=== PATIENT | female | born 1990 | race Caucasian/White ===

== ENCOUNTER 2020-09-19 20:51 | Emergency (ER) | payer SELFPAY ==
[2020-09-19 20:54] VITALS: BP 139/68; PULSE 100; RESP 18; O2SAT 97; BMI 39.1
--- NOTE | 2020-09-19 22:15 | ED.DENTAL ---
HPI - Dental/Oral General Chief complaint: Dental/Oral Stated complaint: facial bump Time Seen by Provider: 09/19/20 22:15 Source: patient Mode of arrival: ambulatory Limitations: no limitations History of Present Illness HPI Narrative: patient with history of caries teeth broke her right upper premolar 2 days ago woke up next day with increased swelling and pain Complaint: tooth pain Teeth map: 1. tender broken right upper premolar with gum swelling Related Data Previous Rx's Medication Instructions Recorded amoxicillin-pot clavulanate 1 tab PO BID #20 tab 09/19/20 [Augmentin] tramadol 50 mg PO Q6H PRN #20 tab 09/19/20 Allergies Allergy/AdvReac Type Severity Reaction Status Date / Time clindamycin [CLINDAMYCIN] Allergy Intermediate RASH Verified 09/19/20 20:52 Review of Systems Review of Systems: Yes all other systems are reviewed and are negative [facility] Past Medical History Surgical History S/P cholecystectomy Social History Social History Advance Directives: No Advance Directives Information Provided: Yes Patient : No Physical Exam Vital Signs: Vital Signs: Last Vital Signs Pulse 100 09/19/20 20:54 Resp 18 09/19/20 20:54 BP 139/68 09/19/20 20:54 Pulse Ox 97 09/19/20 20:54 Body Mass Index 39.1 Const: General: acute distress mild HENMT: Teeth image: 1. broken tooth with abscess Resp: Effort & Inspection: normal respiratory effort Auscultation: clear to auscultation bilaterally Cardio: Rate: regular rate Rhythm: regular rhythm MDM - Dental/Oral MDM Narrative Medical decision making narrative: needle aspiration of right upper premolar abscess using lidocaine 2% 1 cc used for local infiltration using 18 gauge needle small amount of pus drain patient felt better Discharge Plan Discharge Clinical Impression: Dental abscess Patient Disposition: Home, Self-Care Instructions: Dental Abscess (ED) Additional Instructions: local care as advised. Take antibiotic as prescribed. Follow up with dentist Prescriptions: New tramadol 50 mg tablet 50 mg PO Q6H PRN (Reason: pain) Qty: 20 RF: 0 amoxicillin-pot clavulanate [Augmentin] 875-125 mg tablet 1 tab PO BID Qty: 20 RF: 0
[2020-09-19] MEDS: Amoxicillin/Potassium Clav 875 MG TABLET PO (22:27)
[2020-09-19] MEDS: Lidocaine HCl 2 % MPF 5 ML VIAL INFILTRATI (22:27)
--- NOTE | 2020-09-19 22:49 | PC.NURSE ---
PT ABCESS DRAINED AT BEDSIDE BY DR VILLA.
== END 2020-09-19 22:57 | disposition home or self-care (01) ==
PROVIDERS: Emergency Provider Internal Medicine
DX: K04.7 Periapical abscess without sinus (principal)
CPT/HCPCS: 41800; 99283; 99284

== ENCOUNTER 2023-06-24 09:34 | Emergency (ER) | payer SELFPAY ==
[2023-06-24 09:55] VITALS: BP 130/90; BP 135/85; PULSE 109; PULSE 116; RESP 18; TEMP 37; O2SAT 97; O2SAT 98; BMI 40.5
--- NOTE | 2023-06-24 10:04 | ED_ITS ---
HPI - General Adult General Chief complaint: Abdominal Pain Stated complaint: ABD PAIN,N/V PER EMS Time Seen by Provider: 06/24/23 09:37 History of Present Illness HPI narrative: The patient is a 32-year-old female who says the last week she had several days of a bad sore throat. Her throat his started to feel better but the last 3 days she has had chills and a cough as well as a sense of nausea. Today she thought she might be feeling better and tried to go to work but then she had an abrupt onset of abdominal pain, nausea, vomiting, and diarrhea. She has felt feverish but has not measured a fever. The patient has a history of cholecystectomy. The patient has been having problems with low back pain in his due for a back injection in the next couple of weeks. Related Data Previous Rx's Medication Instructions Recorded amoxicillin 875 mg-potassium 1 tab PO BID #20 tabs 09/19/20 clavulanate 125 mg tablet (Augmentin) tramadol 50 mg tablet 50 mg PO Q6H PRN pain #20 tabs 09/19/20 ibuprofen 600 mg tablet 600 mg PO Q6H PRN fever or pain 06/24/23 #14 tabs ondansetron 4 mg disintegrating 4 mg PO Q6H PRN nausea and 06/24/23 tablet vomiting #10 tabs Allergies Allergy/AdvReac Type Severity Reaction Status Date / Time clindamycin [CLINDAMYCIN] Allergy Intermediate RASH Verified 09/19/20 20:52 Review of Systems 2 Review of Systems: Yes all other systems are reviewed and are negative [facility] Past Medical History Surgical History S/P cholecystectomy Social History Social History Advance Directives: No Advance Directives Information Provided: No Physical Exam ED Vital Signs: Vital Signs - 24 hr 06/24/23 09:55 06/24/23 12:18 06/24/23 13:45 Temperature 98.6 F 98.5 F 98 F Pulse Rate 109 H 71 80 Respiratory Rate 18 14 18 Blood Pressure 135/85 113/70 131/81 Pulse Oximetry 98 98 98 Oxygen Delivery Method Room Air Room Air Room Air BMI result Body Mass Index 40.5 Const Other: The patient is awake and alert, pleasant and cooperative. She looks as if she feels unwell but she does not seem acutely toxic. Mental status is normal. HENMT Other: Minimal erythema to the posterior pharynx. No exudate. No tonsillar enlargement. Mucous membranes are moist. Eyes Other: Pupils are round equal, conjunctivae are clear, extraocular movements intact Neck Other: No cervical adenopathy or tenderness. The neck is benign. Resp Other: She has an occasional dry cough Effort & Inspection: normal respiratory effort Auscultation: clear to auscultation bilaterally Cardio Rate: regular rate Rhythm: regular rhythm Heart sounds: S1 normal heart sound present and S2 normal heart sound present GI Other: The patient has right lower quadrant tenderness. General: Yes no CVA tenderness Back/Spine/Pelvis Back: no CVA tenderness Skin Other: The skin was pale and mildly diaphoretic. Neuro Other: The patient was awake and alert, grossly neurologically intact, normal mental status, normal gait Extrem Other: No peripheral edema Medications Administered Discontinued Medications Generic Name Dose Route Start Last Admin Trade Name Byronq PRN Reason Stop Dose Admin Droperidol 0.625 mg 06/24/23 11:40 06/24/23 11:55 Droperidol 5 Mg/2 Ml Vial IVPUSH 06/24/23 11:41 0.625 mg ONCE ONE Administration Sodium Chloride 1,000 mls @ 999 mls/hr 06/24/23 10:00 06/24/23 11:38 Ns IV 06/24/23 11:00 Infused .Q1H1M KEITH Infusion Ketorolac Tromethamine 10 mg 06/24/23 10:04 06/24/23 10:24 Ketorolac Tromethamine 15 Mg/Ml Vial IVPUSH 06/24/23 10:05 10 mg ONCE ONE Administration Medical Decision Making Medical Decision Making [facility] Narrative: The patient presents with a variety of symptoms describing a bad sore throat last week and chills and nausea and vomiting and diarrhea over the last few days. She has tested positive for influenza a today. Other labs are unremarkable. She was treated symptomatically with IV fluids, ketorolac, and droperidol. She felt much better. Given that her symptoms have been going on for an uncertain amount of time I do not think there is an indication for oseltamivir. She will be discharged with instructions to use ibuprofen and acetaminophen and fluids and other conservative instructions for flu management at home. Lab Data 06/24/23 10:08 06/24/23 10:08 Labs: Lab Results 06/24/23 Range/Units 10:08 WBC 7.4 (4.8-10.8) X10*3/uL RBC 5.38 (4.20-5.50) X10*6/uL Hgb 14.6 (12.0-16.0) g/dl Hct 44.2 (37.0-47.0) % MCV 82.2 (80.0-98.0) fL MCH 27.1 (27.0-33.0) pg MCHC 33.0 (31.0-35.0) g/dl RDW 12.9 (11.0-16.0) % Plt Count 295 (160-400) X10*3/uL MPV 9.3 L (9.4-12.3) fL Immature Gran % (Auto) 0.4 (0.0-0.4) % Neut % (Auto) 54.7 (45-73) % Lymph % (Auto) 34.6 (20-40) % [place] % (Auto) 9.4 (2-11) % Eos % (Auto) 0.4 (0-4) % Baso % (Auto) 0.5 (0-2) % Lymph # (Auto) 2.6 (1.2-4.9) X10*3/uL [place] # (Auto) 0.7 (0.1-1.2) X10*3/uL Eos # (Auto) 0.0 (0.0-0.4) X10*3/uL Baso # (Auto) 0.0 (0.0-0.2) X10*3/uL Abs Immat Gran (auto) 0.03 (0.00-0.03) X10*3/uL Absolute Neuts (auto) 4.1 (2.0-8.3) x10*3/uL Absolute Nucleated RBC 0.000 (0.0-0.012) X10*3/uL Nucleated RBC % (auto) 0.0 (0.0-0.2) /100WBC Sodium 137 (135-145) mmol/L Potassium 3.8 (3.3-5.1) mmol/L Chloride 107 (96-108) mmol/L Carbon Dioxide 20 L (22-29) mmol/L Anion Gap 14 (12-20) BUN 14 (9-16) mg/dL Creatinine 0.78 (0.5-1.4) mg/dL Estim Creat Clear Calc 128.0 Estimated GFR > 60 Random Glucose 116 H (60-115) mg/dL Calcium 9.1 (8.4-10.2) mg/dL Total Bilirubin 0.2 (0.0-1.0) mg/dL Direct Bilirubin < 0.2 (0.0-0.5) mg/dL AST 36 H (5-31) U/L ALT 39 H (0-31) U/L Alkaline Phosphatase 74 (39-117) U/L C-Reactive Protein 1.60 H (< or = 0.50) mg/dL Total Protein 7.8 (6.5-8.0) g/dL Albumin 4.4 (3.5-5.0) g/dL Lipase 24 (8-78) U/L Beta HCG, Quant < 2 mIU/mL Influenza Type A (PCR) POSITIVE A (Negative) Influenza Type B (PCR) NEGATIVE (Negative) RSV RNA Qual (PCR) NEGATIVE (Negative) SARS-CoV-2 RNA (RT-PCR) NEGATIVE (Negative) S. pyogenes GrpA JUSTIN Negative (Negative) Discharge Plan Discharge Clinical Impression: Influenza A Patient Disposition: Home, Self-Care Instructions: Influenza (ED) Additional Instructions: You have tested positive for influenza today. Please try and get as much rest as you can today. I have sent a prescription for ibuprofen to your pharmacy which you may use as needed for fever and discomfort. I have also sent a prescription for ondansetron which you may use for any nausea. Drink lot of fluids. Try and rest as much as you are able to. Stay in touch with your regular doctor's office for additional advice as needed. Return to the emergency room if you feel significantly worse. Prescriptions: New ibuprofen 600 mg tablet 600 mg PO Q6H PRN (Reason: fever or pain) Qty: 14 0RF ondansetron 4 mg tablet,disintegrating 4 mg PO Q6H PRN (Reason: nausea and vomiting) Qty: 10 0RF No Action tramadol 50 mg tablet 50 mg PO Q6H PRN (Reason: pain) Qty: 20 0RF amoxicillin-pot clavulanate [Augmentin] 875-125 mg tablet 1 tab PO BID Qty: 20 0RF Referrals: Carmine Olivera [employer] [Primary Care Provider] - (Influenza) Interventions: ED Discharge Assessment Last Done: 06/24/23 13:45 Discharge Date/Time: 06/24/23 13:48
[2023-06-24] MEDS: 0.9 % Sodium Chloride 1,000 ML 999 ML IV (10:10)
[2023-06-24 10:14] LABS: MANUAL DIFF FLAG NO
[2023-06-24 10:15] LABS: Basophils Percent Auto 0.5 % (0-2); Eosinophils Percent Auto 0.4 % (0-4); Hematocrit 44.2 % (37.0-47.0); Hemoglobin 14.6 g/dl (12.0-16.0); Imm Gran Abs Auto 0.03 X10*3/uL (0.00-0.03); Imm Gran Pct Auto 0.4 % (0.0-0.4); Lymphocytes Absolute Auto 2.6 X10*3/uL (1.2-4.9); Lymphocytes Percent Auto 34.6 % (20-40); Mean Corpuscular Hemoglobin 27.1 pg (27.0-33.0); Mean Corpuscular Volume 82.2 fL (80.0-98.0); Mean Platelet Volume 9.3 fL (9.4-12.3); Monocytes Absolute Auto 0.7 X10*3/uL (0.1-1.2); Monocytes Percent Auto 9.4 % (2-11); Neutrophils Absolute Auto 4.1 x10*3/uL (2.0-8.3); Neutrophils Percent Auto 54.7 % (45-73); Platelet Count 295 X10*3/uL (160-400); Red Blood Count 5.38 X10*6/uL (4.20-5.50); Red Cell Distribution Width 12.9 % (11.0-16.0); White Blood Count 7.4 X10*3/uL (4.8-10.8)
[2023-06-24] MEDS: Ketorolac Tromethamine 15 MG/ML VIAL 10 MG IVPUSH (10:24)
[2023-06-24 10:32] LABS: IDNOW Serial# 08D9AD1C; Strep A Nucleic Acid Negative (Negative)
[2023-06-24 10:49] LABS: Alanine Aminotransferase 39 U/L (0-31); Albumin Level 4.4 g/dL (3.5-5.0); Alkaline Phosphatase 74 U/L (39-117); Anion Gap 14 (12-20); Aspartate Amino Transferase 36 U/L (5-31); Bilirubin Direct < 0.2 mg/dL (0.0-0.5); Bilirubin Total 0.2 mg/dL (0.0-1.0); Blood Urea Nitrogen 14 mg/dL (9-16); Calcium 9.1 mg/dL (8.4-10.2); Carbon Dioxide 20 mmol/L (22-29); Chloride 107 mmol/L (96-108); Estimated Glomerular Filt Rate > 60; Glucose Random 116 mg/dL (60-115); HCG Quantitative < 2 mIU/mL; Lipase 24 U/L (8-78); Potassium 3.8 mmol/L (3.3-5.1); Sodium 137 mmol/L (135-145); Total Protein 7.8 g/dL (6.5-8.0)
[2023-06-24 10:58] LABS: Influenza A PCR POSITIVE (Negative); Influenza B PCR NEGATIVE (Negative); Resp Syncy Virus RNA Qual PCR NEGATIVE (Negative); SARS COV2 PCR INHOUSE NEGATIVE (Negative)
[2023-06-24] MEDS: droPERidol 5 MG/2 ML VIAL 0.625 MG IVPUSH (11:55)
[2023-06-24 12:18] VITALS: BP 113/70; PULSE 71; RESP 14; TEMP 36.9; O2SAT 98
[2023-06-24 13:45] VITALS: BP 131/81; PULSE 80; RESP 18; TEMP 36.6; O2SAT 98
== END 2023-06-24 13:48 | disposition home or self-care (01) ==
PROVIDERS: Emergency Provider Emergency Medicine; PCP Nurse Practitioner Family
DX: J10.1 Influenza due to other identified influenza virus with other respiratory manifestations (principal); Z88.1 Allergy status to other antibiotic agents
CPT/HCPCS: 0241U; 80048; 80076; 83690; 84702; 85025; 86140; 87651; 99284; J1790; J1885

== ENCOUNTER 2024-03-19 19:12 | Emergency (ER) | payer SELFPAY ==
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
[2024-03-19 19:30] VITALS: BP 142/96; PULSE 117; O2SAT 98
[2024-03-19 19:37] VITALS: BP 177/98; PULSE 98; RESP 19; TEMP 36.6; O2SAT 98; BMI 41.2
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
[2024-03-19] MEDS: Cyclobenzaprine HCl 10 MG TABLET PO (22:30)
[2024-03-19 22:38] VITALS: BP 177/98; PULSE 98; RESP 19; TEMP 36.6; O2SAT 98
== END 2024-03-19 22:39 | disposition home or self-care (01) ==
PROVIDERS: Emergency Provider Emergency Medicine
DX: Z04.1 Encounter for examination and observation following transport accident (principal); M79.18 Myalgia, other site; M25.551 Pain in right hip; M25.511 Pain in right shoulder; R51.9 Headache, unspecified
CPT/HCPCS: 70450; 72125; 73030; 73502; 99284

== ENCOUNTER → 2024-03-19 19:40 | Outpatient (BNV) | payer SELFPAY | PROVIDERS: Visit Provider Radiology Diagnostic Radiology | DX: M54.2 Cervicalgia (principal); S09.90XA Unspecified injury of head, initial encounter; M25.551 Pain in right hip; M25.511 Pain in right shoulder; V49.5 Passenger injured in collision with other and unspecified motor vehicles in traffic accident | CPT/HCPCS: 70450; 72125; 73030; 73502 ==

== ENCOUNTER 2024-09-09 10:24 | Emergency (ER) | payer BC, SELFPAY ==
--- NOTE | ~2024-09-09 | CT_ITS ---
EXAMINATION: CT CERVICAL SPINE WITHOUT CONTRAST CLINICAL INFORMATION: Injury. Pain. COMPARISON: March 19, 2024. TECHNIQUE: Contiguous axial images through the cervical spine using 3 mm collimation with bone and soft tissue algorithm. Sagittal reformatted images acquired. Coronal reformatted images no provided. DLP: 676.[address] examination was performed using dose optimization techniques as appropriate, variously including the following: *Automated exposure control *Adjustment of mA and/or kV according to patient size (this includes techniques or standardized protocols for targeted exams where dose is matched to indication/reason for exam; i.e. extremities or head) *Use of iterative reconstruction technique FINDINGS: Craniocervical junction is intact with normal alignment between the occipital condyles and lateral masses of C1. C1 is intact. C2 is intact. C3 is intact. C4 is intact. C5 is intact. C6 is intact. C7 is intact. Small marginal osteophyte formation at C6-7. Normal alignment between the vertebral bodies and the facet joints. No gross prevertebral compartment hematoma. Dystrophic calcifications in the nonenlarged thyroid gland. Tympanic cavities and mastoid cells are aerated. CT/CT cervical spine wo IV con IMPRESSION: No acute fracture or trauma-related listhesis. Fleischner guidelines were followed. Electronically signed by: Chandra Gillette MD 09/09/2024 12:25 PM EDT
--- NOTE | ~2024-09-09 | CT_ITS ---
EXAMINATION: CT HEAD WITHOUT CONTRAST CLINICAL INFORMATION: Head trauma after falling COMPARISON: March 19, 2024 TECHNIQUE: Contiguous axial imaging was performed from the skull base to vertex without intravenous administration of contrast. This CT examination was performed using dose optimization techniques as appropriate, variously including the following: *Automated exposure control *Adjustment of mA and/or kV according to patient size (this includes techniques or standardized protocols for targeted exams where dose is matched to indication/reason for exam; i.e. extremities or head) *Use of iterative reconstruction technique DLP: 1579 mGY*cm FINDINGS: There is no acute ischemic change. There is no intracranial hemorrhage. There is no mass-effect or midline shift. Basal cisterns and ventricles are within normal limits for age/cerebral volume. Orbits are symmetrical and unremarkable. Paranasal sinuses and mastoid air cells are pneumatized. There are no bony abnormalities. Soft tissue hematoma is present in the scalp overlying the right frontal region. CT/CT head/brain wo IV con IMPRESSION: No acute intracranial abnormality. Right frontal scalp hematoma and laceration. Electronically signed by: Kyle Johnson MD 09/09/2024 12:23 PM EDT
[2024-09-09 10:29] VITALS: BP 138/84; PULSE 105; O2SAT 96
[2024-09-09 10:31] VITALS: BP 147/87; PULSE 99; RESP 20; TEMP 37.4; O2SAT 98; BMI 41.8
--- NOTE | 2024-09-09 10:39 | ED_ITS ---
HPI - General Adult General Chief complaint: Wound/Laceration Stated complaint: FALL,HEAD LAC PER EMS Time Seen by Provider: 09/09/24 10:39 Source: patient and EMS Mode of arrival: EMS Limitations: no limitations History of Present Illness ED Provider: Alejandra Guillen PA-C HPI narrative: Patient is a 33 year old assigned male at with a history of sciatica presenting to the emergency department today with a right forehead laceration. Patient states that she was at work when she fell forward, hitting her right forehead on the base of a newspaper stand. Patient denies any loss of consciousness. Patient states that she does not know when her last tetanus shot was. Patient denies any dizziness, lightheadedness, abdominal pain, nausea, vomiting, fever, chills, blurry vision, double vision, loss of vision, chest pain, difficulty breathing, shortness of breath, back pain, night sweats, pain with urination, increased urinary frequency, increased urinary urgency, blood in her urine or stool, syncope or a near syncopal episode, bowel incontinence, bladder incontinence, or any other complaints at this time. Relieving factors: none Exacerbating factors: none Associated symptoms: denies other symptoms Treatments prior to arrival: none Related Data Previous Rx's ?Medication ?Instructions ?Recorded amoxicillin 875 mg-potassium 1 tab PO BID #20 tabs clavulanate 125 mg tablet (Augmentin) tramadol 50 mg tablet 50 mg PO Q6H PRN pain #20 ta bs 09/19/20 ibuprofen 600 mg tablet 600 mg PO Q6H PRN fever or p ain 06/24/23 #14 tabs ondansetron 4 mg disintegrating 4 mg PO Q6H PRN nausea and 06/24/23 tablet vomiting #10 tabs cyclobenzaprine 10 mg tablet 10 mg PO TID PRN muscle s pasm #10 03/19/24 tabs amoxicillin 875 mg-potassium 1 tab PO BID 5 days #10 t abs 09/09/24 clavulanate 125 mg tablet Allergies Allergy/AdvReac Type Severity Reaction Status Date / Time clindamycin (CLINDAMYCIN) Allergy Intermediate RASH Verified 09/09/24 10:32 Review of Systems 2 Constitutional: Constitutional: Reports no additional constitutional complaints, Denies chills, Denies fever(s) and Denies night sweats Eyes: Eyes: Reports no additional eye complaints, Denies blurry vision, Denies change in vision, Denies diplopia, Denies eye discharge, Denies loss of vision and Denies eye pain ENT: Denies dizziness Cardiovascular: Cardiovascular: Reports no additional cardiovascular complaints, Denies chest pain, Denies lightheadedness, Denies Loss of Consciousness and Denies dyspnea Respiratory: Respiratory: Reports no additional respiratory complaints and Denies dyspnea Gastrointestinal: Gastrointestinal: Reports no additional gastrointestinal complaints, Denies abdominal pain, Denies melena, Denies hematochezia, Denies change in bowel habits and Denies change in stool character Genitourinary: Genitourinary: Denies hematuria, Denies urinary frequency, Denies dysuria, Denies urinary incontinence, Denies urinary hesitancy and Denies urinary urgency Musculoskeletal: Musculoskeletal: Reports no additional musculoskeletal complaints, Denies numbness and Denies tingling Comments: Right forehead laceration Neurologic: Denies dizziness, Denies loss of vision, Denies numbness and Denies tingling Psychiatric: Psychiatric: Reports no additional psychiatric complaints Endocrine: Endocrine: Reports no additional endocrine complaints Hematologic/Lymphatic: Hematologic/Lymphatic: Reports no additional hematologic/lymphatic complaints Allergic/Immunologic: Allergic/Immunologic: Reports no additional allergic/immunologic complaints [facility] Past Medical History Attestation statement: The following information was validated with the patient. Source: old records reviewed and nursing notes reviewed Surgical History S/P cholecystectomy Social History Social History Alcohol intake: current Alcohol intake frequency: holidays/special occasions only Smoked in Last 30 Days: No Use of substances other than those prescribed or required for medical reasons: No Substance Use Type: Marijuana Advance Directives: No Advance Directives Information Provided: Yes Do you have a plan to hurt others: No Plan Physical Exam ED Vital Signs: Vital Signs - 24 hr 09/09/24 10:31 09/09/24 12:44 09/09/24 13:51 Temperature 99.3 F 98.0 F Pulse Rate 99 84 84 Respiratory Rate 20 18 18 Blood Pressure 147/87 H 147/84 H 147/84 H Pulse Oximetry 98 99 99 Oxygen Delivery Method Room Air Room Air Room Air BMI result Body Mass Index 41.8 Const General: cooperative, no acute distress, alert and awake Nutritional Appearance: well nourished Orientation/consciousness: patient oriented x3 HENMT Head: Yes atraumatic Ears: hearing grossly normal bilaterally and external ears normal General nose exam: Normal external nose present, no nasal discharge noted and no epistaxis Face images: 2 1. 4 cm laceration - gaping, no active bleeding 2. 1.5 cm abrasion - no gaping, no active bleeding Mouth: Normal oral and palatal mucosa present, no drooling and no muffled voice Eyes General: appearance normal, both eyes and all related structures Periorbital: periorbital findings normal Eyelids: Yes eyelids normal Conjunctivae: conjunctivae normal Pupils: Equal, round and reactive pupils present EOM: EOMs intact bilaterally Neck Neck: Yes normal visual inspection, Yes full ROM and Yes no lymphadenopathy Resp Effort & Inspection: normal respiratory effort and able to speak in complete sentences Neuro General: patient oriented x3, moves all extremities and CN's II-XI intact bilaterally Cranial nerves: Yes Equal, round and reactive pupils present Cognition (Neuro): normal cognition Extrem General: Yes normal to inspection, Yes full ROM and Yes capillary refill normal Psych Appearance: grossly normal Mental Status: mental status grossly normal Affect: normal affect Attitude: cooperative Thought process: Normal thought process present Thought content: Normal thought content present Insight: Good insight present (Psych) Medications Administered Discontinued Medications Generic Name Dose Route Start Last Admin Trade Name Freq PRN Reason Stop Dose Admin Diphtheria/Tetanus/Acell Pertussis 0.5 ml 09/09/24 10:53 09/09/24 11:43 Diphth,Pertus(Acell),Tet Adult 0.5 Ml Syringe IM 09/09/24 10:54 0.5 ml .ONCE ONE Administration Lidocaine HCl 15 ml 09/09/24 12:03 09/09/24 13:29 Lidocaine Hcl 1 % Mpf 5 Ml Vial SUBCUT 09/09/24 12:04 15 ml ONCE ONE Administration Oxycodone HCl 10 mg 09/09/24 12:03 09/09/24 12:42 Oxycodone Hcl Immed Release 5 Mg Tablet PO 09/09/24 12:04 10 mg ONCE ONE Administration Procedures Laceration Laceration 1: Site: face Side (If applicable): right Size (cm): 4 Description: linear Depth: simple, single layer Local Anesthetic: lidocaine 1% Amount of anesthesia used (mL): 10 Pre-repair: wound explored, irrigated extensively and deep structures intact Skin layer closed with: other (prolene) Size (cm): 4-0 Number of sutures: 7 Technique: simple, interrupted Right forehead abrasion: Site: face Side (If applicable): right Size (cm): 1.5 Description: linear Depth: simple, single layer Pre-repair: wound explored, irrigated extensively and deep structures intact Skin layer closed with: other (dermabond) Size (cm): other (dermabond) Technique: other (dermabond) Medical Decision Making Medical Decision Making MDM Narrative: Patient is a 33 year old assigned male at with a history of sciatica presenting to the emergency department today with a right forehead laceration. Patient's physical exam was as noted in the physical exam portion of this note. Patient's CT head and c-spine showed no acute process. I explained my physical exam findings as well as all test results to the patient. I answered all questions asked by the patient. Patient's laceration was repaired, per procedure note, without incident. Patient's abrasion was repaired, per procedure note, without incident. I stressed the importance of the patient taking her medication as directed (either prescribed or as the over the counter packaging recommends). I stressed the importance of the patient following up with her primary care provider. I stressed the importance of the patient returning to the emergency department immediately if her symptoms were to worsen or if she were to develop any dizziness, shortness of breath, difficulty breathing, chest pain, blurry vision, loss of vision, nausea, vomiting, abdominal pain, fever, chills, back pain, or any other complaints. Patient verbalized agreement and understanding with this treatment plan and discharge. Differential Diagnosis Differential Diagnoses: The differential diagnosis associated with the presentation includes Abrasion Laceration Fall Admission/Observation Consideration of admission/observation: Escalation of care including admission/observation considered Patient would have been admitted to the hospital had her work up had any findings where hospital admission was appropriate and her clinical presentation warranted hospital admission. Independent Interpretation I performed an independent interpretation of an: CT Scan (Head + C-spine) Interpretation: My interpretation is in agreement with the radiologist's impression of these imaging studies. L Report Number: [id number]: Total DLP = 1579.00 mGy-cm EXAMINATION: CT HEAD WITHOUT CONTRAST CLINICAL INFORMATION: Head trauma after falling COMPARISON: March 19, 2024 TECHNIQUE: Contiguous axial imaging was performed from the skull base to vertex without intravenous administration of contrast. This CT examination was performed using dose optimization techniques as appropriate, variously including the following: *Automated exposure control *Adjustment of mA and/or kV according to patient size (this includes techniques or standardized protocols for targeted exams where dose is matched to indication/reason for exam; i.e. extremities or head) *Use of iterative reconstruction technique DLP: 1579 mGY*cm FINDINGS: There is no acute ischemic change. There is no intracranial hemorrhage. There is no mass-effect or midline shift. Basal cisterns and ventricles are within normal limits for age/cerebral volume. Orbits are symmetrical and unremarkable. Paranasal sinuses and mastoid air cells are pneumatized. There are no bony abnormalities. Soft tissue hematoma is present in the scalp overlying the right frontal region. CT/CT head/brain wo IV con IMPRESSION: No acute intracranial abnormality. Right frontal scalp hematoma and laceration. Electronically signed by: Kyle Johnson MD 09/09/2024 12:23 PM EDT RP Dictated By: Kyle Johnson MD Signed By: Electronically signed by Kyle Johnson MD 09/09/24 1223 Report Number: [id number]: Total DLP = 1579.00 mGy-cm EXAMINATION: CT CERVICAL SPINE WITHOUT CONTRAST CLINICAL INFORMATION: Injury. Pain. COMPARISON: March 19, 2024. TECHNIQUE: Contiguous axial images through the cervical spine using 3 mm collimation with bone and soft tissue algorithm. Sagittal reformatted images acquired. Coronal reformatted images no provided. DLP: 676.[address] examination was performed using dose optimization techniques as appropriate, variously including the following: *Automated exposure control *Adjustment of mA and/or kV according to patient size (this includes techniques or standardized protocols for targeted exams where dose is matched to indication/reason for exam; i.e. extremities or head) *Use of iterative reconstruction technique FINDINGS: Craniocervical junction is intact with normal alignment between the occipital condyles and lateral masses of C1. C1 is intact. C2 is intact. C3 is intact. C4 is intact. C5 is intact. C6 is intact. C7 is intact. Small marginal osteophyte formation at C6-7. Normal alignment between the vertebral bodies and the facet joints. No gross prevertebral compartment hematoma. Dystrophic calcifications in the nonenlarged thyroid gland. Tympanic cavities and mastoid cells are aerated. CT/CT cervical spine wo IV con IMPRESSION: No acute fracture or trauma-related listhesis. Fleischner guidelines were followed. Electronically signed by: Chandra Gillette MD 09/09/2024 12:25 PM EDT RP Dictated By: Chandra Bryant MD Signed By: Electronically signed by Chandra Contreras MD 09/09/24 1225 Radiology Impression Discussion of test interpretation with radiology: I have reviewed the radiologist's reading. Independent Historian Clinical information obtained from an independent historian. History obtained from or confirmed by: EMS (EMS provided additional history and confirmed the history provided by the patient.) Prescription Management I considered prescription management with: Antibiotic (Given mechanism of injury - patient started on prophylactic antibiotic.) Discharge Plan Discharge Clinical Impression: Laceration Patient Disposition: Home, Self-Care Instructions: Care For Your Stitches (DC), Laceration (DC), Skin Adhesive Care (ED) Additional Instructions: Sleep at a 45 degree angle to keep swelling in your forehead down. Have your sutures removed in 7-10 days. Do NOT get the area with skin ADHESIVE / GLUE wet. Perform daily wound checks and dressing changes. Take your antibiotic as prescribed. After your sutures are removed and the scab has fallen away - apply sunscreen on the area every day for 1 full year to mitigate scarring. Follow up with your primary care provider. Return to the emergency department immediately if your symptoms worsen or if you develop any numbness, tingling, dizziness, shortness of breath, difficulty breathing, chest pain, blurry vision, loss of vision, nausea, vomiting, abdominal pain, fever, chills, back pain, or any other complaints. Please see the information below about our Patient Portal. If you are not yet enrolled in the [facility] Patient Portal, you will receive an enrollment email invitation following your visit to any [facility] setting. You may also self-enroll in the Patient Portal by visiting our website: [email or web address] The following information is required to access the Patient Portal: - Your [facility] Medical Record Number - Your personal home email address (must match what is in your electronic medical record, Registration staff can assist with this) - Name - Date of Capabilities of the Patient Portal: - Message some providers - View upcoming appointments - Access your health summary, medical history, and visit history - View current conditions and allergies - View procedure and lab results - View your medications, including guidelines, side effects, and precautions - Complete pre-appointment questionnaires requested by your provider - Ready summary reports of your office visits and procedures To access the Patient Portal Mobile Butch, follow these directions: - Search [facility] in the Butch Store or [employer] Store - Download the Butch - Search for [facility] - Enter your login/password Prescriptions: New amoxicillin-pot clavulanate 875-125 mg tablet 1 tab PO BID 5 Days Qty: 10 0RF No Action tramadol 50 mg tablet 50 mg PO Q6H PRN (Reason: pain) Qty: 20 0RF amoxicillin-pot clavulanate [Augmentin] 875-125 mg tablet 1 tab PO BID Qty: 20 0RF ibuprofen 600 mg tablet 600 mg PO Q6H PRN (Reason: fever or pain) Qty: 14 0RF ondansetron 4 mg tablet,disintegrating 4 mg PO Q6H PRN (Reason: nausea and vomiting) Qty: 10 0RF cyclobenzaprine 10 mg tablet 10 mg PO TID PRN (Reason: muscle spasm) Qty: 10 0RF Referrals: [facility] Family Medicine [Provider Group, Family Practice] Referral Note: Call to establish and follow up with a primary care provider. If you already have a primary care provider, please follow up with them. [facility] Primary Care, [place] [Provider Group, Internal Medicine] Referral Note: Call to establish and follow up with a primary care provider. If you already have a primary care provider, please follow up with them. [facility], [place] [Provider Group, Internal Medicine] Referral Note: Call to establish and follow up with a primary care provider. If you already have a primary care provider, please follow up with them. [facility] Primary [facility], [facility] [Provider Group, Primary Care] Referral Note: Call to establish and follow up with a primary care provider. If you already have a primary care provider, please follow up with them. [facility], [facility] [Provider Group, Primary Care] Referral Note: Call to establish and follow up with a primary care provider. If you already have a primary care provider, please follow up with them. Stand Alone Forms: Work/School Release Interventions: ED Discharge Assessment Last Done: 09/09/24 13:51 Discharge Date/Time: 09/09/24 13:52 Print Language: Venezuelan
[2024-09-09] MEDS: Diphth,Pertus(ACell),Tet Adult 0.5 ML SYRINGE IM (11:43)
[2024-09-09] MEDS: oxyCODONE HCl Immed Release 5 MG TABLET 10 MG PO (12:42)
[2024-09-09 12:44] VITALS: BP 147/84; PULSE 84; RESP 18; O2SAT 99
[2024-09-09] MEDS: Lidocaine HCl 1 % MPF 5 ML VIAL 15 ML SUBCUT (13:29)
[2024-09-09 13:51] VITALS: BP 147/84; PULSE 84; RESP 18; TEMP 36.7; O2SAT 99
== END 2024-09-09 13:52 | disposition home or self-care (01) ==
PROVIDERS: Emergency Provider Emergency Medicine
DX: S01.81XA Laceration without foreign body of other part of head, initial encounter (principal); M54.2 Cervicalgia; R51.9 Headache, unspecified; W01.119A Fall on same level from slipping, tripping and stumbling with subsequent striking against unspecified sharp object, initial encounter; Y93.9 Activity, unspecified; Y92.9 Unspecified place or not applicable; Y99.0 Civilian activity done for income or pay; Z23 Encounter for immunization
CPT/HCPCS: 12014; 70450; 72125; 90471; 90715; 99284; J2003

== ENCOUNTER → 2024-09-09 10:53 | Outpatient (BNV) | payer BC, SELFPAY | PROVIDERS: Visit Provider Radiology Diagnostic Radiology | DX: S09.90XA Unspecified injury of head, initial encounter (principal); S00.03XA Contusion of scalp, initial encounter; S01.81XA Laceration without foreign body of other part of head, initial encounter; M54.2 Cervicalgia | CPT/HCPCS: 70450; 72125 ==

== ENCOUNTER 2024-09-14 20:16 | Emergency (ER) | payer BC, SELFPAY ==
[2024-09-14 20:36] VITALS: BP 150/93; PULSE 100; RESP 16; TEMP 36.8; O2SAT 98; BMI 42.1
[2024-09-14 21:04] LABS: Hematocrit 35.1 % (37.0-47.0); Hemoglobin 11.7 g/dl (12.0-16.0); Mean Corpuscular HGB Conc 33.3 g/dl (31.0-35.0); Mean Corpuscular Volume 81.1 fL (80.0-98.0); Mean Platelet Volume 9.3 fL (9.4-12.3); Platelet Count 308 X10*3/uL (160-400); Red Blood Count 4.33 X10*6/uL (4.20-5.50); Red Cell Distribution Width 13.2 % (11.0-16.0); White Blood Count 11.6 X10*3/uL (4.8-10.8)
[2024-09-14 21:18] LABS: Alanine Aminotransferase 24 U/L (0-31); Albumin Level 4.2 g/dL (3.5-5.0); Alkaline Phosphatase 67 U/L (39-117); Anion Gap 10 (12-20); Aspartate Amino Transferase 30 U/L (5-31); Bilirubin Total 0.2 mg/dL (0.0-1.0); Blood Urea Nitrogen 10 mg/dL (9-16); Calcium 8.7 mg/dL (8.4-10.2); Carbon Dioxide 28 mmol/L (22-29); Chloride 106 mmol/L (96-108); Creatinine Clr Calc Pharmacy 127.6; Estimated Glomerular Filt Rate > 60; Glucose Random 75 mg/dL (60-115); Potassium 3.7 mmol/L (3.3-5.1); Sodium 140 mmol/L (135-145); Total Protein 6.9 g/dL (6.5-8.0)
--- NOTE | 2024-09-14 23:43 | ED.ABDPAIN ---
HPI - Abdominal Pain General Chief Complaint: Abdominal Pain Stated Complaint: uti traveling to kidney? Time Seen by Provider: 09/14/24 23:13 History of Present Illness ED Provider: Dao Skelton MD HPI narrative: 33-year-old female who recently had a fall and injury she is on she thinks amoxicillin prophylactic antibiotics for laceration of the superior forehead. She is here mainly for right flank pain she said she started getting dysuria notice some dark or blood-tinged urine about a week ago did not seek care for this. She now has pain in the right upper flank. This is relatively constant not colicky no abdominal pain Related Data Previous Rx's ?Medication ?Instructions ?Recorded amoxicillin 875 mg-potassium 1 tab PO BID #20 tabs 09/19/20 clavulanate 125 mg tablet (Augmentin) tramadol 50 mg tablet 50 mg PO Q6H PRN pain #20 tabs 09/19/20 ibuprofen 600 mg tablet 600 mg PO Q6H PRN fever or pain 06/24/23 #14 tabs ondansetron 4 mg disintegrating 4 mg PO Q6H PRN nausea and 06/24/23 tablet vomiting #10 tabs cyclobenzaprine 10 mg tablet 10 mg PO TID PRN muscle spasm #10 03/19/24 tabs amoxicillin 875 mg-potassium 1 tab PO BID 5 days #10 tabs 09/09/24 clavulanate 125 mg tablet phenazopyridine 200 mg tablet 200 mg PO TID 6 doses #6 tabs 09/14/24 (Pyridium) sulfamethoxazole 800 1 tab PO Q12H 10 days #20 tabs 09/14/24 mg-trimethoprim 160 mg tablet (Bactrim DS) sulfamethoxazole 800 1 tab PO Q12H 5 days #10 tabs 09/14/24 mg-trimethoprim 160 mg tablet (Bactrim DS) Allergies Allergy/AdvReac Type Severity Reaction Status Date / Time clindamycin (CLINDAMYCIN) Allergy Intermediate RASH Verified 09/14/24 20:39 [facility] Past Medical History Surgical History S/P cholecystectomy Social History Social History Alcohol intake: current Alcohol intake frequency: holidays/special occasions only Substance Use Type: Marijuana Advance Directives: No Advance Directives Information Provided: Yes Physical Exam ED Vital Signs: Vital Signs - 24 hr 09/14/24 20:36 Temperature 98.3 F Pulse Rate 100 Respiratory Rate 16 Blood Pressure 150/93 H Pulse Oximetry 98 Oxygen Delivery Method Room Air BMI result Body Mass Index 42.1 Const Other: EXAM: Gen: Alert, awake, well appearing, well hydrated. Head: Atraumatic Eyes: Anicteric, Normal conjunctiva. ENT: Moist mucosa, no pallor. ? Neck: Supple. Skin: ?No observable rash or bruising on exposed or examined skin Respiratory: Breathing comfortably, No distress.Clear to auscultation bilaterally, symmetric chest expansion, No wheeze, rales, ronchi. Cardiovascular: Regular rate and rhythm. No murmurs or rub. Well perfused periphery, warm extremities. No edema. ? Abdominal: No FOCAL TENDERNESS. Soft, no objective distension. No palpable masses or obvious organomegaly. ?No guarding, no rebound tenderness or other peritoneal findings. : Moderate right flank tenderness Neuro: Alert. Gross movement of all extremities intact. ? Psych: Calm. Cooperative. MSK: No grossly visible deformity. Vital signs: See flowsheet Procedures Procedure Narrative Procedure Narrative: EMERGENCY ULTRASOUND INTERPRETATION-Limited Retroperitoneal (Renal) [This study was ordered, performed, and interpreted by myself. The study reveals: Impression: NO EVIDENCE OF UROLOGIC OBSTRUCTION] [Indication: FLANK PAIN Right Kidney: NO HYDRONEPHROSIS Performed by: Dao Skelton MD Images were stored CPT: 03068] Medical Decision Making Medical Decision Making MDM Narrative: 33-year-old female awake alert well-appearing. On prophylactic antibiotics for recent facial lacerations that are healing well. She has no acute headache visual symptoms or focal neurologic complaints to suggest a complication of the recent head injury that was managed at a previous ED visit. She is mainly complaining of dysuria worsening with right flank pain. There was no signs of hydronephrosis on bedside ultrasound. Urinalysis not overtly suggestive of UTI but maybe incompletely treated were suppressed due to the presumed beta-lactam prophylactic antibiotics. Given the clinical history I think it is reasonable to put her on a 10 day course for possible pyelonephritis. Patient has no fever hemodynamic instability or other indication for admission or further testing. Lab Data 09/14/24 20:58 06/24/25 20:58 Labs: Lab Results 09/14/24 09/14/24 Range/Units 20:58 23:49 WBC 11.6 H (4.8-10.8) X10*3/uL RBC 4.33 (4.20-5.50) X10*6/uL Hgb 11.7 L (12.0-16.0) g/dl Hct 35.1 L D (37.0-47.0) % MCV 81.1 (80.0-98.0) fL MCH 27.0 (27.0-33.0) pg MCHC 33.3 (31.0-35.0) g/dl RDW 13.2 (11.0-16.0) % Plt Count 308 (160-400) X10*3/uL MPV 9.3 L (9.4-12.3) fL Absolute Nucleated RBC 0.000 (0.0-0.012) X10*3/uL Nucleated RBC % (auto) 0.0 (0.0-0.2) /100WBC Sodium 140 (135-145) mmol/L Potassium 3.7 (3.3-5.1) mmol/L Chloride 106 (96-108) mmol/L Carbon Dioxide 28 (22-29) mmol/L Anion Gap 10 L (12-20) BUN 10 (9-16) mg/dL Creatinine 0.82 (0.5-1.4) mg/dL Estim Creat Clear Calc 127.6 Estimated GFR > 60 Random Glucose 75 (60-115) mg/dL Calcium 8.7 (8.4-10.2) mg/dL Iron 51 (30-160) mcg/dL TIBC 294 (228-428) mcg/dL % Saturation 17 (15-50) % Unsat Iron Binding 243 ug/dL Total Bilirubin 0.2 (0.0-1.0) mg/dL AST 30 (5-31) U/L ALT 24 (0-31) U/L Alkaline Phosphatase 67 (39-117) U/L Total Protein 6.9 (6.5-8.0) g/dL Albumin 4.2 (3.5-5.0) g/dL Urine Color Yellow Urine Appearance Clear Urine pH 6.5 (5.0-9.0) Ur Specific [place] 1.025 (1.005-1.025) Urine Protein Negative (Neg-Trace) mg/dL Urine Glucose (UA) Negative (Negative) mg/dL Urine Ketones Negative (Negative) mg/dL Urine Blood Negative (Negative) Urine Nitrite Negative (Negative) Ur Leukocyte Esterase Trace H (Negative) Urine RBC 0-2 (0-2) /HPF Urine WBC 0-5 (0-5) /HPF Ur Squamous Epith Cells 3-5 (0-2) /HPF Urine Bacteria None Seen (None Seen) Hyaline Casts 0-2 (0-2) /LPF Medications Administered Discontinued Medications Generic Name Dose Route Start Last Admin Trade Name Freq PRN Reason Stop Dose Admin Ibuprofen 600 mg 09/14/24 23:42 09/15/24 00:30 Ibuprofen 600 Mg Tablet PO 09/14/24 23:43 600 mg ONCE ONE Administration Phenazopyridine HCl 200 mg 09/14/24 23:41 09/15/24 00:30 Phenazopyridine Hcl 200 Mg Tablet PO 09/14/24 23:42 200 mg ONCE ONE Administration Trimethoprim/Sulfamethoxazole 1 tab 09/14/24 23:41 09/15/24 00:30 Sulfamethox/Trimeth 800/160 Tablet PO 09/14/24 23:42 1 tab ONCE ONE Administration Discharge Plan Discharge Clinical Impression: Pyelonephritis Patient Disposition: Home, Self-Care Instructions: Kidney Infection (ED) Additional Instructions: DISCHARGE DIAGNOSES: Painful urinating, right back/flank pain HISTORY OF PRESENTATION: ?Recent UTI and injury to the face. You have been taking amoxicillin started getting pain in the right back EMERGENCY DEPARTMENT COURSE,TESTS, TREATMENTS: While in the ED today you had lab work done including blood counts and chemistries and kidney function which was showed mild anemia this is a decrease in your blood count since June of 2023 needs to be followed by your primary doctor please call the office for follow up. DISCHARGE MEDICATIONS: ?[We have made no changes to your regular medication regimen] we have added on Pyridium to help with the pain when urinating as well as an antibiotic for the next 10 days. We recommend stopping the current antibiotic your on and complete the full course that we have prescribed FOLLOW-UP: ?Call your primary or general physician soon as possible to discuss your symptoms, your ED visit and to discuss follow up plans Call your primary doctor follow up INSTRUCTIONS ?& RETURN PRECAUTIONS: If any symptoms change first call your primary physician, if it is after-hours your primary doctors office should have a provider staff radiation therapist you can speak with. If the symptoms are severe or very concerning to you then call 911 or return to the ED. Return to the ED if you develop severe pain shaking chills at night worsening condition despite 2 days of antibiotics Dao Skelton MD Emergency Physician [facility] Prescriptions: New sulfamethoxazole-trimethoprim [Bactrim DS] 800-160 mg tablet 1 tab PO Q12H 5 Days Qty: 10 0RF sulfamethoxazole-trimethoprim [Bactrim DS] 800-160 mg tablet 1 tab PO Q12H 10 Days Qty: 20 0RF phenazopyridine [Pyridium] 200 mg tablet 200 mg PO TID Qty: 6 0RF No Action tramadol 50 mg tablet 50 mg PO Q6H PRN (Reason: pain) Qty: 20 0RF amoxicillin-pot clavulanate [Augmentin] 875-125 mg tablet 1 tab PO BID Qty: 20 0RF ibuprofen 600 mg tablet 600 mg PO Q6H PRN (Reason: fever or pain) Qty: 14 0RF ondansetron 4 mg tablet,disintegrating 4 mg PO Q6H PRN (Reason: nausea and vomiting) Qty: 10 0RF cyclobenzaprine 10 mg tablet 10 mg PO TID PRN (Reason: muscle spasm) Qty: 10 0RF amoxicillin-pot clavulanate 875-125 mg tablet 1 tab PO BID 5 Days Qty: 10 0RF Interventions: ED Discharge Assessment Last Done: 09/15/24 00:33 Discharge Date/Time: 09/15/24 00:34 Print Language: [place]
[2024-09-14 23:57] LABS: Appearance Urine Clear; Color Urine Yellow; Glucose Urine UA Negative (Negative); Leukocyte Esterase Urine Trace (Negative); Nitrite Urine Negative (Negative); PH 6.5 (5.0-9.0); Specific Gravity - Urine 1.025 (1.005-1.025); UMIC TRIGGER UACC YES; Urine Blood Negative (Negative); Urine Ketones Negative (Negative); Urine Protein Negative (Neg-Trace)
[2024-09-15 00:03] LABS: Bacteria Urine None Seen (None Seen); Hyaline Casts Urine 0-2 /LPF (0-2); RBC Urine 0-2 /HPF (0-2); WBC Urine 0-5 /HPF (0-5)
[2024-09-15 00:08] LABS: Iron 51 mcg/dL (30-160); Percent Iron Saturation 17 % (15-50); Total Iron Binding Capacity 294 mcg/dL (228-428); Unsaturated Iron Binding 243 ug/dL
[2024-09-15] MEDS: Phenazopyridine HCL 200 MG TABLET PO (00:30)
[2024-09-15] MEDS: Ibuprofen 600 MG TABLET PO (00:30)
[2024-09-15] MEDS: Sulfamethox/Trimeth 800/160 TABLET 1 TAB PO (00:30)
[2024-09-15 00:31] VITALS: BP 134/82; PULSE 91; RESP 16; TEMP 36.6; O2SAT 96
[2024-09-15 00:33] VITALS: BP 134/82; PULSE 91; RESP 16; TEMP 36.6; O2SAT 96
== END 2024-09-15 00:34 | disposition home or self-care (01) ==
PROVIDERS: Emergency Provider Emergency Medicine
DX: N12 Tubulo-interstitial nephritis, not specified as acute or chronic (principal); R30.0 Dysuria; D64.9 Anemia, unspecified; Z90.49 Acquired absence of other specified parts of digestive tract; Z79.899 Other long term (current) drug therapy
CPT/HCPCS: 36415; 80053; 81001; 81003; 83540; 85027; 99283

== ENCOUNTER 2024-09-20 02:47 | Emergency (ER) | payer BC, SELFPAY ==
[2024-09-20 02:55] VITALS: BP 128/76; PULSE 106; RESP 16; TEMP 36.6; O2SAT 99; BMI 34.7
--- NOTE | 2024-09-20 03:49 | PC.NURSE ---
provider into to see pt at this time.
--- NOTE | 2024-09-20 03:59 | ED_ITS ---
HPI - General Adult General Chief complaint: Skin/Abscess/Foreign Body Stated complaint: personal and forehead suture removal Time Seen by Provider: 09/20/24 03:01 Source: patient Limitations: no limitations History of Present Illness ED Provider: Kristin Alarcon PA-C HPI narrative: 33-year-old female presents with vaginal foreign body. Patient was having intercourse prior to arrival, her partner was using a condom, it was lost during coitus. Patient also requesting suture removal; she sustained a forehead laceration 10 days ago. Related Data Previous Rx's ?Medication ?Instructions ?Recorded amoxicillin 875 mg-potassium 1 tab PO BID #20 tabs clavulanate 125 mg tablet (Augmentin) tramadol 50 mg tablet 50 mg PO Q6H PRN pain #20 ta bs 09/19/20 ibuprofen 600 mg tablet 600 mg PO Q6H PRN fever or p ain 06/24/23 #14 tabs ondansetron 4 mg disintegrating 4 mg PO Q6H PRN nausea and 06/24/23 tablet vomiting #10 tabs cyclobenzaprine 10 mg tablet 10 mg PO TID PRN muscle s pasm #10 03/19/24 tabs amoxicillin 875 mg-potassium 1 tab PO BID 5 days #10 t abs 09/09/24 clavulanate 125 mg tablet phenazopyridine 200 mg tablet 200 mg PO TID 6 doses #6 tabs 09/14/24 (Pyridium) sulfamethoxazole 800 1 tab PO Q12H 10 days #20 ta bs 09/14/24 mg-trimethoprim 160 mg tablet (Bactrim DS) sulfamethoxazole 800 1 tab PO Q12H 5 days #10 tab s 09/14/24 mg-trimethoprim 160 mg tablet (Bactrim DS) Allergies Allergy/AdvReac Type Severity Reaction Status Date / Time clindamycin (CLINDAMYCIN) Allergy Intermediate RASH Verified 09/20/24 02:57 Review of Systems Review of Systems: Yes all other systems are reviewed and are negative Constitutional: Constitutional: Denies fatigue and Denies fever(s) Endocrine: Endocrine: Denies fatigue [facility] Past Medical History Attestation statement: The following information was validated with the patient. Surgical History S/P cholecystectomy Social History Social History Alcohol intake: current Alcohol intake frequency: holidays/special occasions only Substance Use Type: Marijuana Advance Directives: No Advance Directives Information Provided: No Do you have a plan to hurt others: No Plan Physical Exam ED Vital Signs: Vital Signs - 24 hr 09/20/24 02:55 Temperature 97.9 F Pulse Rate 106 H Respiratory Rate 16 Blood Pressure 128/76 Pulse Oximetry 99 Oxygen Delivery Method Room Air BMI result Body Mass Index 34.7 Const Other: Alert Orientation/consciousness: patient oriented x3 HENMT Other: Suture line over right brow Resp Effort & Inspection: normal respiratory effort Cardio Other: Normal peripheral perfusion Other: Condom visualize within vaginal canal, and removed intact Skin Other: Warm dry no rash Neuro General: patient oriented x3, gait normal, no focal motor deficits and CN's II- XI intact bilaterally Psych Other: Cooperative Medical Decision Making Medical Decision Making MDM Narrative: 33-year-old female presents with vaginal foreign body. Patient was having intercourse prior to arrival, her partner was using a condom, it was lost during coitus. Patient also requesting suture removal; she sustained a forehead laceration 10 days ago. Patient here for suture removal and condom removal both were successfully removed. Discharge Plan Discharge Clinical Impression: Foreign body in vagina, Visit for suture removal Patient Disposition: Home, Self-Care Additional Instructions: Condom was removed intact. All of your stitches were removed as well. Follow up with primary care as needed. Prescriptions: No Action tramadol 50 mg tablet 50 mg PO Q6H PRN (Reason: pain) Qty: 20 0RF amoxicillin-pot clavulanate [Augmentin] 875-125 mg tablet 1 tab PO BID Qty: 20 0RF sulfamethoxazole-trimethoprim [Bactrim DS] 800-160 mg tablet 1 tab PO Q12H 5 Days Qty: 10 0RF sulfamethoxazole-trimethoprim [Bactrim DS] 800-160 mg tablet 1 tab PO Q12H 10 Days Qty: 20 0RF phenazopyridine [Pyridium] 200 mg tablet 200 mg PO TID Qty: 6 0RF ibuprofen 600 mg tablet 600 mg PO Q6H PRN (Reason: fever or pain) Qty: 14 0RF ondansetron 4 mg tablet,disintegrating 4 mg PO Q6H PRN (Reason: nausea and vomiting) Qty: 10 0RF cyclobenzaprine 10 mg tablet 10 mg PO TID PRN (Reason: muscle spasm) Qty: 10 0RF amoxicillin-pot clavulanate 875-125 mg tablet 1 tab PO BID 5 Days Qty: 10 0RF Print Language: British
[2024-09-20 04:18] VITALS: BP 128/76; PULSE 106; RESP 16; TEMP 36.6; O2SAT 99
--- NOTE | 2024-09-20 04:18 | PC.NURSE ---
reviewed discharge instructions with pt. pt verbalized understanding, no sign of distress.
== END 2024-09-20 04:19 | disposition home or self-care (01) ==
PROVIDERS: Emergency Provider Emergency Medicine
DX: T19.2XXA Foreign body in vulva and vagina, initial encounter (principal); W44.8XXA Other foreign body entering into or through a natural orifice, initial encounter; Z48.02 Encounter for removal of sutures
CPT/HCPCS: 99284